=== PATIENT | male | born 1945 | race African-American/Black ===

== ENCOUNTER 2019-11-11 14:42 | Emergency (ER) | payer MEDICARE, MEDICAID ==
[~2019-11-11] VITALS: Ht 172.7 cm; Wt 86.2 kg
--- NOTE | 2019-11-11 15:00 | Emergency Room Report ---
History of Present Illness General Chief Complaint: Male Urogenital Problems Source: Patient Present Illness HPI 73-year-old male with suprapubic catheter after 3 failed enlarged prostate surgeries. He reports he had a catheter bag which ripped overnight. He had a replacement bag which was very small in size. He is requesting a larger bag to attach to the end of his suprapubic catheter. Denies any change in urine drainage. He denies any abdominal discomfort. He has an appointment with his urologist in early November. Allergies: Coded Allergies: No Known Allergies (Unverified , 11/11/19) Nursing Documentation-PMH Hx Cardiac Problems: No - prostatomegaly Hx Hypertension: Yes Hx Diabetes: Yes - Type 2 Hx Gastrointestinal Problems: Yes - Anemia Review of Systems Constitutional: Denies: chills, fever Respiratory: Denies: cough, shortness of breath Cardiovascular: Denies: chest pain, palpitations Gastrointestinal: Denies: diarrhea, vomiting Genitourinary: Denies: hematuria, pain Musculoskeletal: Denies: joint swelling Skin: Denies: rash, lesions Neurological: Denies: headache, dizziness Physical Exam Vital Signs Date Time Temp Pulse Resp B/P (MAP) Pulse Ox O2 Delivery O2 Flow Rate FiO2 11/11/19 14:49 97.7 80 18 142/85 (104) 98 Room Air Sp02 EP Interpretation: reviewed General Appearance: well appearing, no apparent distress, non-toxic Head: normocephalic, atraumatic Eyes: bilateral eye normal inspection ENT: hearing grossly normal, EOM grossly intact, moist mucus membranes Neck: supple Respiratory: lungs clear, normal breath sounds, no respiratory distress, speaking full sentences Cardiovascular #1: regular rate, rhythm, normal capillary refill Cardiovascular #2: 2+ radial (R), 2+ radial (L) Gastrointestinal: soft, no mass, non-distended Rectal: deferred Genitourinary: no CVA tenderness, penis normal, other - Suprapubic catheter present in lower abdomen, insertion site clean dry intact., Light urine drainage in bag. Musculoskeletal: moves extm spontaneously, no lower extremity edema Neurologic: grossly normal Psychiatric: mood/affect normal Skin: warm/dry, normal turgor Medical Decision Making Diagnostic Impression: Primary Impression: Suprapubic catheter Additional Impression: Problem with urinary catheter ER Course 73-year-old male with tear in suprapubic catheter bag. Has small bag showing drainage of clear nonodorous urine. Catheter site clean dry and intact Patient offered new replacement large bag. Patient discharged with follow-up at his urologist as planned Last Vital Signs Date Time Temp Pulse Resp B/P (MAP) Pulse Ox O2 Delivery O2 Flow Rate FiO2 11/11/19 14:49 97.7 80 18 142/85 (104) 98 Room Air Disposition: HOME, SELF-CARE Condition: Stable Patient Instructions: Suprapubic Catheter Home Guide, Suprapubic Catheter Replacement Additional Instructions: Please follow-up with your urologist as scheduled. Srinath Maldonado M.D. Nov 11, 2019 15:00
[2019-11-11 15:05] VITALS: BP 142/85
--- NOTE | 2019-11-11 15:05 | NUR ---
ER DISCHARGE NOTE: Patient came to ED to get a catheter bag regfill. Patient cleared for DC per Dr. Maldonado, pt AxO x 4, VSS. Patient verbalized understanding of DC instructions. ID band removed. Patient able to ambulate with steady gait, took all belongings.
== END 2019-11-11 15:05 | disposition home or self-care (01) ==
LOC: EMR 15:00
DX: Z46.6 Encounter for fitting and adjustment of urinary device (principal); E11.9 Type 2 diabetes mellitus without complications; I10 Essential (primary) hypertension
CPT/HCPCS: 99283

== ENCOUNTER 2020-12-30 12:21 | Emergency (ER) | payer MEDICARE, MEDICAID ==
[~2020-12-30] VITALS: Ht 172.7 cm; Wt 95.3 kg
[2020-12-30 12:42] VITALS: BP 131/82
[2020-12-30 12:43] VITALS: BP 131/82
--- NOTE | 2020-12-30 12:43 | NUR ---
ED Nurse Note: Pt cleared by health care Provider for discharge. DC instructions was given and explained to pt and verbalized understanding of teachings. All medical deviecs such as ID band removed. Pt is AAO x4, ambulatory and left with all personal belongings.
--- NOTE | 2020-12-30 12:44 | Emergency Room Report ---
History of Present Illness General Chief Complaint: Medication Refill Source: Patient Present Illness HPI Patient is a 75-year-old male who presents to the ER requesting a larger Mckeon bag. Patient states that he has suprapubic catheter and needs a bigger bag for nighttime. He denies any abdominal pain, nausea or vomiting. He denies any fever or chills. He denies any issues with the Mckeon catheter itself. Allergies: Coded Allergies: No Known Allergies (Unverified , 11/11/19) COVID-19 Screening Contact w/high risk pt: No Experienced COVID-19 symptoms?: No COVID-19 Testing performed [employer]INTING: No Patient History Reviewed Nursing Documentation: PMH: Agreed; PSxH: Agreed Nursing Documentation-PMH Past Medical History: No History, Except For Hx Cardiac Problems: No - prostatomegaly Hx Hypertension: Yes Hx Diabetes: Yes - Type 2 Hx Gastrointestinal Problems: Yes - Anemia Review of Systems All Other Systems: negative except mentioned in HPI Physical Exam Vital Signs Date Time Temp Pulse Resp B/P (MAP) Pulse Ox O2 Delivery O2 Flow Rate FiO2 12/30/20 12:34 98.1 77 16 131/82 (98) 98 Room Air Sp02 EP Interpretation: reviewed, normal General Appearance: no apparent distress, alert, GCS 15, non-toxic Head: normocephalic, atraumatic Eyes: bilateral eye normal inspection, bilateral eye PERRL ENT: normal pharynx Neck: full range of motion, no meningismus Respiratory: chest non-tender, normal breath sounds, no respiratory distress Cardiovascular #1: regular rate, rhythm Gastrointestinal: non tender, soft, no guarding, no rebound, other - suprapubic catheter in place Rectal: deferred Genitourinary: no CVA tenderness Musculoskeletal: normal range of motion Neurologic: dobby looms pegger III-XII nml as tested, oriented x3 Psychiatric: no suicidal/homicidal ideation Skin: no rash Lymphatic: no adenopathy Medical Decision Making Diagnostic Impression: Primary Impression: Mckeon catheter in place ER Course After discussing risks and benefits of further diagnostics, treatment plans, as well as indications for and risks of admission, the patient is agreeable to being discharged home. I have explained that their evaluation and treatment in the emergency department today is an important step towards them achieving better health but that their evaluation today is not intended to replace further evaluation and treatment by a physician in their local clinic. I have explained that while the current findings suggest no immediate life threatening emergency they will require further evaluation and treatment by a physician of their choice in their area. They understand that it will be necessary for them to review the final reports of their ED visit with their clinic physician. We have reviewed indications for return to the Emergency Department. I have explained that additional time may need to pass and/or additional testing as an outpatient may be necessary before a definitive diagnosis can be made. They tell me they are willing to follow up as instructed within the timeframe I recommend. They appear to understand what we discussed. Additionally they understand that if they are unable to be seen by an outpatient physician they are welcome, and in fact should, return to the Emergency Department for a repeat evaluation. The patient is stable at time of discharge. Last Vital Signs Date Time Temp Pulse Resp B/P (MAP) Pulse Ox O2 Delivery O2 Flow Rate FiO2 12/30/20 12:42 98.1 77 16 131/82 98 Room Air Disposition: HOME, SELF-CARE Condition: Stable [facility] Patient Instructions: Mckeon Catheter Care, Adult, [id number] Additional Instructions: The patient was provided with discharge instructions, notified to follow-up with a primary care doctor and or specialist in the next 24-48 hours, and to return to the ED if they have worsening of their symptoms. Please note that this report is being documented using [employer] technology. This can lead to erroneous entry secondary to incorrect interpretation by the dictating instrument. Evangelina Melgoza M.D. Dec 30, 2020 12:44
== END 2020-12-30 12:40 | disposition home or self-care (01) ==
LOC: EMR 12:35
DX: Z96.0 Presence of urogenital implants (principal); I10 Essential (primary) hypertension; E11.9 Type 2 diabetes mellitus without complications
CPT/HCPCS: 99281